=== PATIENT | male | born 1980 | race Caucasian/White ===

== ENCOUNTER 2018-01-07 22:23 | Inpatient (IN) | payer MEDICAID, OTHER ==
[~2018-01-07] VITALS: Ht 170.2 cm; Wt 111.6 kg
[~2018-01-07 22:23] MED LIST: ARIP10TA8 PO; AZIT250T9 PO; BUPR-93 PO; DIVA-76 PO; OLAN5TAB2 PO; PRED10 PO; PRED20 PO; PRED5 PO; TAMS0.4C32 PO; VERA80 PO
[2018-01-07 23:00] LABS: HEMATOCRIT 43.9 % (41-53); HEMOGLOBIN 14.9 g/dL (13.5-17.5); MEAN CORPUSCULAR HGB CONC 33.9 G/dL (31.0-37.0); MEAN CORPUSCULAR VOLUME 88 fL (80-100); PLATELET COUNT (AUTO) 446 K/uL (150-450); RED BLOOD CELL COUNT(AUTO) 4.97 MIL/uL (4.50-5.90); RED CELL DISTRIBUTION WIDTH 15.3 % (11.5-14.5)
[2018-01-07 23:09] LABS: ANION GAP 7 mmol/L (8-16); CALCIUM, TOTAL 9.1 mg/dL (8.8-10.5); CARBON DIOXIDE 31 mmol/L (22-29); CHLORIDE 104 mmol/L (98-107); CREATININE 0.92 mg/dL (0.60-1.30); GLOMERULAR FILTR. RATE CALC > 60 mL/min (>60); GLUCOSE,RANDOM 90 mg/dL (70-110); POTASSIUM 3.9 mmol/L (3.5-5.1); SODIUM SERUM 142 mmol/L (136-145); UREA NITROGEN, BLOOD 19 mg/dL (7-18)
[2018-01-07 23:15] LABS: ALANINE AMINOTRANSFERASE 17 U/L (12-78); ALBUMIN 2.8 g/dL (3.4-5.0); ALKALINE PHOSPHATASE 72 U/L (46-116); ASPARTATE AMINOTRANSFERASE 11 U/L (15-37); BILIRUBIN,TOTAL 0.2 mg/dL (0.1-1.0); TOTAL PROTEIN, SERUM 6.6 g/dL (6.4-8.2); VALPROIC ACID 34 mcg/mL (50-100)
[2018-01-07 23:21] LABS: AMPHET/METH SCREEN,URINE NEGATIVE (NEGATIVE); BARBITURATE SCREEN, URINE NEGATIVE (NEGATIVE); BENZODIAZEPINES SCREEN,URINE NEGATIVE (NEGATIVE); CANNABINOID SCREEN,URINE NEGATIVE (NEGATIVE); COCAINE SCREEN,URINE NEGATIVE (NEGATIVE); METHADONE SCREEN, URINE NEGATIVE (NEGATIVE); OPIATE SCREEN,URINE NEGATIVE (NEGATIVE); PHENCYCLIDINE SCREEN,URINE NEGATIVE (NEGATIVE)
[2018-01-07 23:22] LABS: BAND NEUTROPHILS % (MANUAL) 14 % (0-5); LYMPHOCYTES % (MANUAL) 42 % (22-44); MONOCYTES % (MANUAL) 5 % (2-9); SEGMENTED NEUTROPHILS % 39 % (40-70)
[2018-01-07] MEDS ORDERED: LORazepam 2 MG TABLET PO PRN (23:45)
[2018-01-07] MEDS ORDERED: OLANZapine 5 MG RAPDIS TABLET PO PRN (23:45)
[2018-01-07] MEDS ORDERED: QUEtiapine FUMARATE 100 MG TABLET PO PRN (23:45)
[2018-01-08] MEDS ORDERED: IBUPROFEN 600 MG TABLET PO ONE (00:45)
[2018-01-08] MEDS ORDERED: IPRATROPIUM BROMIDE 0.5 MG/2.5 ML NEB SOLUTION NEB ONE (09:00)
[2018-01-08] MEDS ORDERED: ALBUTEROL SULFATE 5 MG/ML 20 ML NEB SOLN [BULK] NEB ONE (09:00)
[2018-01-08 09:41] LABS: ABG A-A DIFF O2 112.3 mmHg (10-20.0); ABG BASE EXCESS 8.6 mmol/L (-2.0-3.0); ABG CARBOXYHEMOGLOBIN 2.6 % (0.0-1.5); ABG HCO3 30.4 mmol/L (22.0-26.0); ABG METHEMOGLOBIN 0.3 % (0.0-1.5); ABG OXYGEN CONTENT 16.8 mL/dL (15.0-23.0); ABG OXYGEN SATURATION 93.6 % (95.0-98.0); ABG OXYHEMOGLOBIN 90.9 % (94.0-100.0); ABG TOTAL HEMOGLOBIN 13.1 G/dL (12.0-18.0); PO2, ARTERIAL BG 70.5 mmHg (92.0-100.0); SOURCE, BLOOD GAS ARTERIAL; TEMPERATURE, FAHRENHEIT, BG 99.1 FAHREN (96.0-98.6)
[2018-01-08 09:42] LABS: ABG PCO2 63 mmHg (35-45)
[2018-01-08 09:43] LABS: O2 DEVICE,BLOOD GAS CANNULA (ROOM AIR); SITE, BLOOD GAS RT RADIAL
[2018-01-08 16:30] VITALS: BP 118/65
[2018-01-08] MEDS ORDERED: IPRATROPIUM BROMIDE 0.5 MG/2.5 ML NEB SOLUTION NEB SCH (19:00)
[2018-01-08] MEDS ORDERED: ALBUTEROL SULFATE 2.5 MG/0.5 ML NEB SOLUTION NEB SCH (19:00)
[2018-01-08] MEDS ORDERED: HALOPERIDOL 5 MG TABLET PO PRN (20:15)
[2018-01-08] MEDS ORDERED: OLANZapine 5 MG RAPDIS TABLET PO PRN (20:30)
[2018-01-08 20:44] LABS: GLUCOMETER DEV NAME(LOC) 3EI C; GLUCOSE,POINT OF CARE 121 MG/DL (70-110)
[2018-01-08] MEDS: ZOLPIDEM TARTRATE 10 MG TABLET PO PRN (20:44)
[2018-01-08] MEDS: HEPARIN SODIUM,PORCINE 5,000 UNITS/ML VIAL SQ SCH (20:44)
[2018-01-08] MEDS ORDERED: PredniSONE 20 MG TABLET PO SCH (21:00)
[2018-01-08] MEDS ORDERED: DIVALPROEX SODIUM 500 MG ER TABLET PO SCH (21:00)
[2018-01-08] MEDS ORDERED: OLANZapine 5 MG TABLET PO SCH (21:00)
[2018-01-08] MEDS ORDERED: DEXTROSE 50%-WATER 25 GM/50 ML SYRINGE IVP PRN (21:15)
[2018-01-08] MEDS: VERAPAMIL HCL 80 MG TABLET PO SCH (22:07)
[2018-01-09 02:16] VITALS: BP 117/64
[2018-01-09] MEDS: ACETAMINOPHEN 500 MG TABLET PO PRN (02:29)
[2018-01-09 05:34] LABS: GLUCOMETER DEV NAME(LOC) 3EI C; GLUCOSE,POINT OF CARE 240 MG/DL (70-110)
[2018-01-09] MEDS: ASPIRIN 81 MG CHEWABLE TABLET PO SCH (07:03)
[2018-01-09] MEDS: INSULIN LISPRO 100 UNITS/ML SQ PRN ×2 (07:19→20:33)
[2018-01-09] MEDS ORDERED: VERAPAMIL HCL 80 MG TABLET PO SCH (09:00)
[2018-01-09] MEDS ORDERED: BuPROPion HCL XL 150 MG ER TABLET PO SCH (09:00)
[2018-01-09] MEDS ORDERED: NICOTINE 21 MG/24 HOUR PATCH TD SCH (09:00)
[2018-01-09] MEDS ORDERED: PredniSONE 20 MG TABLET PO SCH (09:00)
[2018-01-09] MEDS: LEVOFLOXACIN 500 MG TABLET PO SCH (09:11)
[2018-01-09] MEDS: CIPROFLOXACIN HCL 0.2%/HYDROCORT 1% 10 ML OTIC SUSPENSION AU SCH ×3 (09:12→16:37)
[2018-01-09] MEDS: VERAPAMIL HCL 80 MG TABLET PO SCH ×4 (09:12→21:00)
[2018-01-09] MEDS: HEPARIN SODIUM,PORCINE 5,000 UNITS/ML VIAL SQ SCH ×2 (09:13→20:24)
[2018-01-09] MEDS: LORazepam 1 MG TABLET PO PRN (09:15)
[2018-01-09] MEDS: FLUTICASONE/VILANTEROL 200-25 MCG/INH INHALER [14] IH SCH (09:15)
[2018-01-09] MEDS: IPRATROPIUM BROMIDE 0.5 MG/2.5 ML NEB SOLUTION NEB SCH ×3 (09:29→16:00)
[2018-01-09] MEDS: ALBUTEROL SULFATE 2.5 MG/0.5 ML NEB SOLUTION NEB SCH ×3 (09:29→16:00)
[2018-01-09] MEDS: NICOTINE 21 MG/24 HOUR PATCH TD SCH (10:30)
[2018-01-09 11:29] LABS: GLUCOMETER DEV NAME(LOC) 3EI C; GLUCOSE,POINT OF CARE 118 MG/DL (70-110)
[2018-01-09 11:44] VITALS: BP 117/64
[2018-01-09 20:10] VITALS: BP 128/71
[2018-01-09] MEDS: DIVALPROEX SODIUM 500 MG ER TABLET PO SCH (20:23)
[2018-01-09] MEDS: ZOLPIDEM TARTRATE 10 MG TABLET PO PRN (20:27)
[2018-01-09] MEDS ORDERED: OLANZapine 10 MG TABLET PO SCH (21:00)
[2018-01-09] MEDS: IPRATROPIUM BROMIDE 0.5 MG/2.5 ML NEB SOLUTION NEB PRN (23:02)
[2018-01-09] MEDS: ALBUTEROL SULFATE 2.5 MG/0.5 ML NEB SOLUTION NEB PRN (23:02)
[2018-01-10] MEDS: LORazepam 1 MG TABLET PO PRN ×2 (02:03→16:34)
[2018-01-10 02:05] VITALS: BP 119/66
[2018-01-10 08:55] VITALS: BP 126/97
[2018-01-10] MEDS: NICOTINE 21 MG/24 HOUR PATCH TD SCH (09:00)
[2018-01-10] MEDS: IPRATROPIUM BROMIDE 0.5 MG/2.5 ML NEB SOLUTION NEB SCH ×3 (09:27→16:30)
[2018-01-10] MEDS: ALBUTEROL SULFATE 2.5 MG/0.5 ML NEB SOLUTION NEB SCH ×3 (09:27→16:30)
[2018-01-10] MEDS: VERAPAMIL HCL 80 MG TABLET PO SCH ×4 (09:52→21:19)
[2018-01-10] MEDS: CIPROFLOXACIN HCL 0.2%/HYDROCORT 1% 10 ML OTIC SUSPENSION AU SCH ×2 (09:52→17:39)
[2018-01-10] MEDS: FLUoxetine HCL 20 MG CAPSULE PO SCH (09:52)
[2018-01-10] MEDS: LEVOFLOXACIN 500 MG TABLET PO SCH (09:52)
[2018-01-10] MEDS: PredniSONE 10 MG TABLET PO SCH (09:53)
[2018-01-10] MEDS: FLUTICASONE/VILANTEROL 200-25 MCG/INH INHALER [14] IH SCH (09:53)
[2018-01-10] MEDS: HEPARIN SODIUM,PORCINE 5,000 UNITS/ML VIAL SQ SCH ×2 (09:53→21:22)
[2018-01-10] MEDS: ASPIRIN 81 MG CHEWABLE TABLET PO SCH (09:54)
[2018-01-10 11:26] LABS: GLUCOMETER DEV NAME(LOC) 3EI C; GLUCOSE,POINT OF CARE 210 MG/DL (70-110)
[2018-01-10 11:31] LABS: GLUCOMETER DEV NAME(LOC) 3EI C; GLUCOSE,POINT OF CARE 189 MG/DL (70-110)
[2018-01-10 11:32] LABS: GLUCOMETER DEV NAME(LOC) 3EI C; GLUCOSE,POINT OF CARE 113 MG/DL (70-110)
[2018-01-10] MEDS: INSULIN LISPRO 100 UNITS/ML SQ PRN ×2 (11:42→21:27)
[2018-01-10] MEDS ORDERED: DIVA500T52 PO (16:23)
[2018-01-10] MEDS ORDERED: FLUO-191 PO (16:23)
[2018-01-10 16:24] LABS: GLUCOMETER DEV NAME(LOC) 3EI C; GLUCOSE,POINT OF CARE 136 MG/DL (70-110)
[2018-01-10] MEDS ORDERED: OLAN10TA20 PO (16:25)
[2018-01-10 17:11] VITALS: BP 113/70
[2018-01-10] MEDS ORDERED: OLANZapine 7.5 MG TABLET PO SCH (21:00)
[2018-01-10] MEDS: DIVALPROEX SODIUM 500 MG ER TABLET PO SCH (21:19)
[2018-01-10] MEDS: ZOLPIDEM TARTRATE 10 MG TABLET PO PRN (21:20)
[2018-01-10 21:29] LABS: GLUCOMETER DEV NAME(LOC) 3EI C; GLUCOSE,POINT OF CARE 171 MG/DL (70-110)
[2018-01-10] MEDS: IPRATROPIUM BROMIDE 0.5 MG/2.5 ML NEB SOLUTION NEB PRN (22:47)
[2018-01-10] MEDS: ALBUTEROL SULFATE 2.5 MG/0.5 ML NEB SOLUTION NEB PRN (22:47)
[2018-01-11 05:40] LABS: GLUCOMETER DEV NAME(LOC) 3EI C; GLUCOSE,POINT OF CARE 86 MG/DL (70-110)
[2018-01-11] MEDS: ASPIRIN 81 MG CHEWABLE TABLET PO SCH (06:38)
[2018-01-11] MEDS: LEVOFLOXACIN 500 MG TABLET PO SCH (08:02)
[2018-01-11] MEDS: FLUoxetine HCL 20 MG CAPSULE PO SCH (08:02)
[2018-01-11] MEDS: VERAPAMIL HCL 80 MG TABLET PO SCH ×2 (08:02→13:07)
[2018-01-11] MEDS: PredniSONE 10 MG TABLET PO SCH (08:03)
[2018-01-11] MEDS: HEPARIN SODIUM,PORCINE 5,000 UNITS/ML VIAL SQ SCH (08:03)
[2018-01-11] MEDS: FLUTICASONE/VILANTEROL 200-25 MCG/INH INHALER [14] IH SCH (08:03)
[2018-01-11] MEDS: CIPROFLOXACIN HCL 0.2%/HYDROCORT 1% 10 ML OTIC SUSPENSION AU SCH ×2 (08:04→13:07)
[2018-01-11 08:43] VITALS: BP 123/74
[2018-01-11] MEDS: ACETAMINOPHEN 500 MG TABLET PO PRN (08:43)
[2018-01-11] MEDS: IPRATROPIUM BROMIDE 0.5 MG/2.5 ML NEB SOLUTION NEB SCH ×2 (08:54→14:33)
[2018-01-11] MEDS: ALBUTEROL SULFATE 2.5 MG/0.5 ML NEB SOLUTION NEB SCH ×2 (08:55→14:33)
[2018-01-11] MEDS: NICOTINE 21 MG/24 HOUR PATCH TD SCH (09:00)
[2018-01-11 11:25] LABS: GLUCOMETER DEV NAME(LOC) 3EI C; GLUCOSE,POINT OF CARE 102 MG/DL (70-110)
[2018-01-11] MEDS ORDERED: ASPI81 PO (11:52)
[2018-01-11] MEDS ORDERED: LEVO500T2 PO (11:52)
[2018-01-11] MEDS ORDERED: FLUT1BLS IH (11:52)
[2018-01-11] MEDS ORDERED: FLUO-191 PO (11:52)
[2018-01-11] MEDS ORDERED: AUD NEB (11:52)
[2018-01-11] MEDS ORDERED: CIPOTIC AU (11:53)
[2018-01-11] MEDS ORDERED: IPRNEB IH (12:06)
[2018-01-11 12:33] VITALS: BP 126/78
[2018-01-12] MEDS ORDERED: PredniSONE 20 MG TABLET PO SCH (09:00)
[2018-01-15] MEDS ORDERED: PredniSONE 20 MG TABLET PO SCH (09:00)
[2018-01-17] MEDS ORDERED: PredniSONE 10 MG TABLET PO SCH (09:00)
[2018-01-27] MEDS ORDERED: PredniSONE 5 MG TABLET PO SCH (09:00)
== END 2018-01-11 14:45 | disposition home or self-care (01) | DRG 750 ==
LOC: EMS 22:24 → 3EI 01-08 15:48
PROVIDERS: ADMIT Psychiatry & Neurology Psychiatry; ATTEND Psychiatry & Neurology Psychiatry
PROC: 5A09357 Assistance with Respiratory Ventilation, Less than 24 Consecutive Hours, Continuous Positive Airway Pressure (ICD-10-PCS; 2018-01-08)
PROC: 3E02340 Introduction of Influenza Vaccine into Muscle, Percutaneous Approach (ICD-10-PCS; principal; 2018-01-09)
PROC: 5A09357 Assistance with Respiratory Ventilation, Less than 24 Consecutive Hours, Continuous Positive Airway Pressure (ICD-10-PCS; 2018-01-10)
DX: F25.0 Schizoaffective disorder, bipolar type (principal); J18.9 Pneumonia, unspecified organism; R45.851 Suicidal ideations; J44.0 Chronic obstructive pulmonary disease with (acute) lower respiratory infection; E66.01 Morbid (severe) obesity due to excess calories; N40.0 Benign prostatic hyperplasia without lower urinary tract symptoms; I10 Essential (primary) hypertension; J44.1 Chronic obstructive pulmonary disease with (acute) exacerbation; G47.33 Obstructive sleep apnea (adult) (pediatric); R00.0 Tachycardia, unspecified; F17.210 Nicotine dependence, cigarettes, uncomplicated; Z91.19 Patient's noncompliance with other medical treatment and regimen; Z87.01 Personal history of pneumonia (recurrent); Z90.81 Acquired absence of spleen; Z79.899 Other long term (current) drug therapy; Z88.8 Allergy status to other drugs, medicaments and biological substances; Z91.013 Allergy to seafood; Z56.0 Unemployment, unspecified; Z23 Encounter for immunization; Z68.38 Body mass index [BMI] 38.0-38.9, adult
CPT/HCPCS: 82805; 87081; 90471; 93970; 94640; 94644; 94660; 99285; G0480; J1644

== ENCOUNTER 2019-03-23 17:07 | Emergency (ER) | payer MEDICAID, OTHER ==
[~2019-03-23] VITALS: Ht 172.7 cm; Wt 90.9 kg
[~2019-03-23 17:07] MED LIST changes: -ARIP10TA8 PO; +ASPI81 PO; +AUD NEB; -AZIT250T9 PO; -BUPR-93 PO; +CIPOTIC AU; +DIVA500T52 PO; +FLUO-191 PO; +FLUT1BLS IH; +IPRNEB IH; +LEVO500T2 PO; +OLAN10TA20 PO; -PRED20 PO; -PRED5 PO; -TAMS0.4C32 PO
[2019-03-23] MEDS ORDERED: ACETAMINOPHEN 500 MG TABLET PO ONE (17:30)
[2019-03-23] MEDS ORDERED: FENO160T11 PO (18:00)
[2019-03-23] MEDS ORDERED: BENZ1TAB10 PO (18:00)
[2019-03-23] MEDS ORDERED: ATOR20TA86 PO (18:00)
[2019-03-23 18:56] VITALS: BP 127/79
== END 2019-03-23 19:53 | disposition home or self-care (01) ==
LOC: EMS 17:08
DX: M25.532 Pain in left wrist (principal); F31.9 Bipolar disorder, unspecified; F20.9 Schizophrenia, unspecified; F17.210 Nicotine dependence, cigarettes, uncomplicated; Z79.899 Other long term (current) drug therapy; Z88.8 Allergy status to other drugs, medicaments and biological substances; Z91.013 Allergy to seafood
CPT/HCPCS: 99406

== ENCOUNTER 2019-04-12 17:02 | Emergency (ER) | payer OTHER ==
[~2019-04-12] VITALS: Ht 170.2 cm; Wt 94.4 kg
[~2019-04-12 17:02] MED LIST changes: +ATOR20TA86 PO; +BENZ1TAB10 PO; +FENO160T11 PO
[2019-04-12 19:35] VITALS: BP 140/80
== END 2019-04-12 19:35 | disposition home or self-care (01) ==
LOC: EMS 17:14
DX: R19.4 Change in bowel habit (principal); F31.9 Bipolar disorder, unspecified; F20.9 Schizophrenia, unspecified; F17.210 Nicotine dependence, cigarettes, uncomplicated; F90.9 Attention-deficit hyperactivity disorder, unspecified type; Z98.890 Other specified postprocedural states; Z79.82 Long term (current) use of aspirin; Z79.899 Other long term (current) drug therapy; Z88.8 Allergy status to other drugs, medicaments and biological substances; Z91.013 Allergy to seafood
CPT/HCPCS: 82271

== ENCOUNTER 2019-04-14 21:02 | Emergency (ER) | payer OTHER ==
[~2019-04-14] VITALS: Ht 170.2 cm; Wt 97.0 kg
[~2019-04-14 21:02] MED LIST changes: -CIPOTIC AU; -LEVO500T2 PO
[2019-04-14 21:13] VITALS: BP 127/93
[2019-04-14] MEDS ORDERED: IBUPROFEN 800 MG TABLET PO ONE (22:00)
== END 2019-04-14 23:23 | disposition home or self-care (01) ==
LOC: EMS 21:04
DX: M54.5 Low back pain (principal); F31.9 Bipolar disorder, unspecified; F20.9 Schizophrenia, unspecified; F17.210 Nicotine dependence, cigarettes, uncomplicated; F43.10 Post-traumatic stress disorder, unspecified; Z79.82 Long term (current) use of aspirin; Z91.013 Allergy to seafood; Z98.890 Other specified postprocedural states; Z88.8 Allergy status to other drugs, medicaments and biological substances

== ENCOUNTER 2019-05-01 16:59 | Emergency (ER) | payer OTHER ==
[~2019-05-01] VITALS: Ht 170.2 cm; Wt 81.8 kg
[2019-05-01] MEDS ORDERED: PB/HYOSCY/ATR/SCOP/LIDO/MAALOX 55 ML BOTTLE PO ONE (20:45)
[2019-05-01 20:50] LABS: BASOPHILS % (AUTO) 0.8 % (0.0-2.0); EOSINOPHILS % (AUTO) 1.2 % (1.0-6.0); HEMATOCRIT 40.4 % (41-53); HEMOGLOBIN 13.8 g/dL (13.5-17.5); LYMPHOCYTES # (AUTO) 2.9 K/uL (1.0-4.8); LYMPHOCYTES % (AUTO) 30.2 % (22.0-44.0); MEAN CORPUSCULAR HEMOGLOBIN 29.9 pg (26.0-34.0); MEAN CORPUSCULAR HGB CONC 34.1 G/dL (31.0-37.0); MEAN CORPUSCULAR VOLUME 88 fL (80-100); MONOCYTES % (AUTO) 20.6 % (2.0-9.0); NEUTROPHILS # (AUTO) 4.6 K/uL (1.8-7.7); NEUTROPHILS % (AUTO) 47.2 % (40.0-70.0); PLATELET COUNT (AUTO) 348 K/uL (150-450); RED CELL DISTRIBUTION WIDTH 18.2 % (11.5-14.5)
[2019-05-01 21:06] LABS: ANION GAP 5 mmol/L (8-16); CALCIUM, TOTAL 9.2 mg/dL (8.8-10.5); CARBON DIOXIDE 33 mmol/L (22-29); CHLORIDE 100 mmol/L (98-107); CREATININE 0.97 mg/dL (0.60-1.30); GLOMERULAR FILTR. RATE CALC > 60 mL/min (>60); GLUCOSE,RANDOM 89 mg/dL (70-110); POTASSIUM 4.2 mmol/L (3.5-5.1); SODIUM SERUM 138 mmol/L (136-145); UREA NITROGEN, BLOOD 8 mg/dL (7-18)
[2019-05-01 21:12] LABS: ALANINE AMINOTRANSFERASE 38 U/L (12-78); ALBUMIN 2.7 g/dL (3.4-5.0); ALKALINE PHOSPHATASE 54 U/L (46-116); ASPARTATE AMINOTRANSFERASE 130 U/L (15-37); BILIRUBIN,TOTAL 0.3 mg/dL (0.1-1.0); CREATINE KINASE, TOTAL ONLY 53 U/L (39-308); TOTAL PROTEIN, SERUM 7.3 g/dL (6.4-8.2)
[2019-05-01 21:41] VITALS: BP 148/67
== END 2019-05-01 23:41 | disposition home or self-care (01) ==
LOC: EMS 17:01
DX: K21.9 Gastro-esophageal reflux disease without esophagitis (principal); F31.9 Bipolar disorder, unspecified; F20.9 Schizophrenia, unspecified; F17.210 Nicotine dependence, cigarettes, uncomplicated; Z98.890 Other specified postprocedural states; Z79.82 Long term (current) use of aspirin; Z88.8 Allergy status to other drugs, medicaments and biological substances; Z91.013 Allergy to seafood
CPT/HCPCS: 93005

== ENCOUNTER 2019-05-30 19:04 | Emergency (ER) | payer OTHER ==
[~2019-05-30] VITALS: Ht 170.2 cm; Wt 113.6 kg
[~2019-05-30 19:04] MED LIST changes: +ASPI-728 PO; -ASPI81 PO; -DIVA-76 PO; -OLAN10TA20 PO
[2019-05-30 21:25] LABS: BASOPHILS % (AUTO) 1.6 % (0.0-2.0); EOSINOPHILS % (AUTO) 0.4 % (1.0-6.0); HEMATOCRIT 39.8 % (41-53); HEMOGLOBIN 13.5 g/dL (13.5-17.5); LYMPHOCYTES # (AUTO) 3.9 K/uL (1.0-4.8); LYMPHOCYTES % (AUTO) 26.7 % (22.0-44.0); MEAN CORPUSCULAR HEMOGLOBIN 30.4 pg (26.0-34.0); MEAN CORPUSCULAR HGB CONC 33.8 G/dL (31.0-37.0); MEAN CORPUSCULAR VOLUME 90 fL (80-100); MONOCYTES # (AUTO) 2.7 K/uL (0.1-1.0); MONOCYTES % (AUTO) 18.2 % (2.0-9.0); NEUTROPHILS # (AUTO) 7.8 K/uL (1.8-7.7); NEUTROPHILS % (AUTO) 53.1 % (40.0-70.0); PLATELET COUNT (AUTO) 376 K/uL (150-450); RED BLOOD CELL COUNT(AUTO) 4.43 MIL/uL (4.50-5.90); RED CELL DISTRIBUTION WIDTH 16.8 % (11.5-14.5)
[2019-05-30 21:33] LABS: ANION GAP 7 mmol/L (8-16); CARBON DIOXIDE 31 mmol/L (22-29); CHLORIDE 95 mmol/L (98-107); CREATININE 1.18 mg/dL (0.60-1.30); GLOMERULAR FILTR. RATE CALC > 60 mL/min (>60); GLUCOSE,RANDOM 90 mg/dL (70-110); POTASSIUM 3.7 mmol/L (3.5-5.1); SODIUM SERUM 133 mmol/L (136-145); UREA NITROGEN, BLOOD 29 mg/dL (7-18)
[2019-05-30 21:38] LABS: ALANINE AMINOTRANSFERASE 34 U/L (12-78); ALBUMIN 3.2 g/dL (3.4-5.0); ALKALINE PHOSPHATASE 52 U/L (46-116); ASPARTATE AMINOTRANSFERASE 105 U/L (15-37); BILIRUBIN,TOTAL 0.7 mg/dL (0.1-1.0); TOTAL PROTEIN, SERUM 7.9 g/dL (6.4-8.2); VALPROIC ACID 93 mcg/mL (50-100)
[2019-05-30] MEDS ORDERED: LORazepam 1 MG TABLET PO ONE (23:15)
[2019-05-30 23:27] VITALS: BP 129/79
== END 2019-05-31 01:20 | disposition home or self-care (01) ==
LOC: EMS 19:04
DX: F15.129 Other stimulant abuse with intoxication, unspecified (principal); R74.0 Nonspecific elevation of levels of transaminase and lactic acid dehydrogenase [LDH]; F31.9 Bipolar disorder, unspecified; F20.9 Schizophrenia, unspecified; F90.9 Attention-deficit hyperactivity disorder, unspecified type; F17.210 Nicotine dependence, cigarettes, uncomplicated; Z98.890 Other specified postprocedural states; Z79.899 Other long term (current) drug therapy; Z79.82 Long term (current) use of aspirin; Z88.8 Allergy status to other drugs, medicaments and biological substances; Z91.013 Allergy to seafood
CPT/HCPCS: 36415; 80053; 80164; 85025; 99283; G0480

== ENCOUNTER 2019-06-10 06:46 | Emergency (ER) | payer OTHER ==
[~2019-06-10] VITALS: Ht 167.6 cm; Wt 88.0 kg
[2019-06-10 07:32] VITALS: BP 135/75
[2019-06-10] MEDS ORDERED: BENZONATATE 100 MG CAPSULE PO ONE (08:00)
[2019-06-10] MEDS ORDERED: ALBUTEROL SULFATE HFA 90 MCG/PUFF 8 GM INHALER IH ONE (08:30)
== END 2019-06-10 08:40 | disposition home or self-care (01) ==
LOC: EMS 06:49
DX: R05 Cough (principal); F31.9 Bipolar disorder, unspecified; F20.9 Schizophrenia, unspecified; F17.210 Nicotine dependence, cigarettes, uncomplicated; Z91.013 Allergy to seafood; Z88.8 Allergy status to other drugs, medicaments and biological substances
CPT/HCPCS: 94640; 99406; J3535

== ENCOUNTER 2019-06-12 19:37 | Emergency (ER) | payer OTHER ==
[~2019-06-12] VITALS: Ht 170.2 cm; Wt 92.3 kg
[~2019-06-12 19:37] MED LIST changes: -ASPI-728 PO; -ATOR20TA86 PO; -FLUO-191 PO; -OLAN5TAB2 PO
[2019-06-12] MEDS ORDERED: SODIUM CHLORIDE 0.9% 1,000 ML IV ONE (20:44)
[2019-06-12] MEDS ORDERED: ONDANSETRON HCL 4 MG/2 ML VIAL IVP ONE (20:45)
[2019-06-12] MEDS ORDERED: ONDANSETRON HCL 4 MG TABLET PO ONE (21:00)
[2019-06-12 21:15] LABS: EOSINOPHILS % (AUTO) 1.8 % (1.0-6.0); HEMATOCRIT 42.9 % (41-53); HEMOGLOBIN 14.2 g/dL (13.5-17.5); LYMPHOCYTES # (AUTO) 3.8 K/uL (1.0-4.8); MEAN CORPUSCULAR VOLUME 91 fL (80-100); MONOCYTES # (AUTO) 1.6 K/uL (0.1-1.0); MONOCYTES % (AUTO) 15.5 % (2.0-9.0); NEUTROPHILS # (AUTO) 4.4 K/uL (1.8-7.7); NEUTROPHILS % (AUTO) 43.7 % (40.0-70.0); PLATELET COUNT (AUTO) 371 K/uL (150-450); RED BLOOD CELL COUNT(AUTO) 4.72 MIL/uL (4.50-5.90); RED CELL DISTRIBUTION WIDTH 16.6 % (11.5-14.5)
[2019-06-12 21:24] LABS: ANION GAP 4 mmol/L (8-16); CALCIUM, TOTAL 9.2 mg/dL (8.8-10.5); CARBON DIOXIDE 33 mmol/L (22-29); CHLORIDE 103 mmol/L (98-107); CREATININE 1.04 mg/dL (0.60-1.30); GLOMERULAR FILTR. RATE CALC > 60 mL/min (>60); GLUCOSE,RANDOM 95 mg/dL (70-110); POTASSIUM 4.4 mmol/L (3.5-5.1); SODIUM SERUM 140 mmol/L (136-145); UREA NITROGEN, BLOOD 10 mg/dL (7-18)
[2019-06-12 21:31] LABS: ALANINE AMINOTRANSFERASE 23 U/L (12-78); ALBUMIN 2.8 g/dL (3.4-5.0); ALKALINE PHOSPHATASE 50 U/L (46-116); ASPARTATE AMINOTRANSFERASE 34 U/L (15-37); BILIRUBIN,TOTAL 0.3 mg/dL (0.1-1.0); LIPASE 86 U/L (73-393); TOTAL PROTEIN, SERUM 7.2 g/dL (6.4-8.2)
[2019-06-12 21:37] LABS: APPEARANCE,URINE CLEAR (CLEAR); BILIRUBIN,URINE NEGATIVE (NEGATIVE); GLUCOSE, URINE (UA) NEGATIVE (NEGATIVE); KETONES,URINE NEGATIVE (NEGATIVE); LEUKOCYTE ESTERASE ,URINE NEGATIVE (NEGATIVE); NITRATE,URINE NEGATIVE (NEGATIVE); OCCULT BLOOD,URINE NEGATIVE (NEGATIVE); PH,URINE 6.5 (5.0-8.0); PROTEIN,URINE NEGATIVE (NEGATIVE)
[2019-06-12 21:39] LABS: AMPHET/METH SCREEN,URINE NEGATIVE (NEGATIVE); BARBITURATE SCREEN, URINE NEGATIVE (NEGATIVE); BENZODIAZEPINES SCREEN,URINE NEGATIVE (NEGATIVE); CANNABINOID SCREEN,URINE NEGATIVE (NEGATIVE); COCAINE SCREEN,URINE NEGATIVE (NEGATIVE); METHADONE SCREEN, URINE NEGATIVE (NEGATIVE); OPIATE SCREEN,URINE NEGATIVE (NEGATIVE)
[2019-06-12 21:42] LABS: PHENCYCLIDINE SCREEN,URINE NEGATIVE (NEGATIVE)
[2019-06-12 21:57] LABS: PLATELET MORPHOLOGY COMMENT GIANT PLTS PRESENT
[2019-06-13 00:12] VITALS: BP 125/76
== END 2019-06-13 00:10 | disposition home or self-care (01) ==
LOC: EMS 19:40
DX: G89.29 Other chronic pain (principal); R10.9 Unspecified abdominal pain; M54.9 Dorsalgia, unspecified; F17.210 Nicotine dependence, cigarettes, uncomplicated
CPT/HCPCS: 36415; 80053; 80307; 81003; 83690; 85025; 99285; Q0162

== ENCOUNTER 2019-06-18 18:22 | Emergency (ER) | payer OTHER ==
[~2019-06-18] VITALS: Ht 172.7 cm; Wt 90.9 kg
[2019-06-18 19:29] VITALS: BP 123/72
[2019-06-18] MEDS ORDERED: ALBUTEROL SULFATE HFA 90 MCG/PUFF 8 GM INHALER IH ONE (20:00)
== END 2019-06-18 21:30 | disposition home or self-care (01) ==
LOC: EMS 18:26
DX: J45.909 Unspecified asthma, uncomplicated (principal); F17.210 Nicotine dependence, cigarettes, uncomplicated; F31.9 Bipolar disorder, unspecified; F20.9 Schizophrenia, unspecified; Z88.8 Allergy status to other drugs, medicaments and biological substances; Z91.013 Allergy to seafood
CPT/HCPCS: 94640; J3535

== ENCOUNTER 2019-06-20 23:00 | Emergency (ER) | payer OTHER ==
[~2019-06-20] VITALS: Ht 170.2 cm; Wt 95.5 kg
[2019-06-21 02:16] VITALS: BP 134/80
== END 2019-06-21 03:02 | disposition home or self-care (01) ==
LOC: EMS 23:01
DX: M79.672 Pain in left foot (principal); F31.9 Bipolar disorder, unspecified; F20.9 Schizophrenia, unspecified; F17.210 Nicotine dependence, cigarettes, uncomplicated; F19.90 Other psychoactive substance use, unspecified, uncomplicated; Z88.8 Allergy status to other drugs, medicaments and biological substances; Z91.013 Allergy to seafood

== ENCOUNTER 2019-06-29 21:05 | Emergency (ER) | payer OTHER ==
[~2019-06-29] VITALS: Ht 170.2 cm; Wt 104.5 kg
[~2019-06-29 21:05] MED LIST changes: -PRED10 PO
[2019-06-29] MEDS ORDERED: CEPHALEXIN MONOHYDRATE 500 MG CAPSULE PO ONE (23:30)
[2019-06-29] MEDS ORDERED: DOXYCYCLINE HYCLATE 100 MG CAPSULE PO ONE (23:30)
[2019-06-29 23:35] VITALS: BP 124/73
== END 2019-06-30 01:37 | disposition home or self-care (01) ==
LOC: EMS 21:07
DX: L03.116 Cellulitis of left lower limb (principal); F31.9 Bipolar disorder, unspecified; F20.9 Schizophrenia, unspecified; F15.90 Other stimulant use, unspecified, uncomplicated; F17.210 Nicotine dependence, cigarettes, uncomplicated; Z88.8 Allergy status to other drugs, medicaments and biological substances; Z91.018 Allergy to other foods; Z79.899 Other long term (current) drug therapy
CPT/HCPCS: 99406

== ENCOUNTER 2019-07-01 14:37 | Emergency (ER) | payer OTHER ==
[~2019-07-01] VITALS: Ht 170.2 cm; Wt 72.7 kg
[2019-07-01] MEDS ORDERED: HYDROCORTISONE 1% 30 GM CREAM TP ONE (15:45)
[2019-07-01 17:00] VITALS: BP 118/76
== END 2019-07-01 19:23 | disposition home or self-care (01) ==
LOC: EMS 14:37
DX: L03.116 Cellulitis of left lower limb (principal); F31.9 Bipolar disorder, unspecified; F20.9 Schizophrenia, unspecified; F17.210 Nicotine dependence, cigarettes, uncomplicated; F15.90 Other stimulant use, unspecified, uncomplicated; Z88.8 Allergy status to other drugs, medicaments and biological substances; Z79.899 Other long term (current) drug therapy; Z88.5 Allergy status to narcotic agent; Z91.013 Allergy to seafood; Z98.890 Other specified postprocedural states
CPT/HCPCS: 99406

== ENCOUNTER 2019-08-06 16:58 | Emergency (ER) | payer OTHER ==
[~2019-08-06] VITALS: Ht 170.2 cm; Wt 90.5 kg
[2019-08-06] MEDS ORDERED: KETOROLAC TROMETHAMINE 30 MG/ML VIAL IM ONE (18:15)
[2019-08-06 19:15] VITALS: BP 121/76
== END 2019-08-06 21:28 | disposition home or self-care (01) ==
LOC: EMS 17:01
DX: M25.512 Pain in left shoulder (principal); F17.210 Nicotine dependence, cigarettes, uncomplicated; J45.909 Unspecified asthma, uncomplicated; F31.9 Bipolar disorder, unspecified; F20.9 Schizophrenia, unspecified; F14.90 Cocaine use, unspecified, uncomplicated; F19.90 Other psychoactive substance use, unspecified, uncomplicated; Z88.8 Allergy status to other drugs, medicaments and biological substances; Z91.013 Allergy to seafood
CPT/HCPCS: 73030; 96372; 99283; 99406; J1885

== ENCOUNTER 2019-09-04 22:34 | Emergency (ER) | payer OTHER ==
[~2019-09-04] VITALS: Ht 165.1 cm; Wt 81.8 kg
[~2019-09-04 22:34] MED LIST changes: +DIVA-80 PO; -DIVA500T52 PO
[2019-09-04] MEDS ORDERED: ACETAMINOPHEN 500 MG TABLET PO ONE (23:30)
[2019-09-04 23:54] VITALS: BP 114/71
== END 2019-09-05 00:07 | disposition home or self-care (01) ==
LOC: EMS 22:34
DX: M79.602 Pain in left arm (principal); F31.9 Bipolar disorder, unspecified; F20.9 Schizophrenia, unspecified; J44.9 Chronic obstructive pulmonary disease, unspecified; F17.210 Nicotine dependence, cigarettes, uncomplicated; F15.90 Other stimulant use, unspecified, uncomplicated; F14.90 Cocaine use, unspecified, uncomplicated

== ENCOUNTER 2019-09-28 19:53 | Emergency (ER) | payer OTHER ==
[~2019-09-28] VITALS: Ht 167.6 cm; Wt 90.9 kg
[~2019-09-28 19:53] MED LIST changes: -DIVA-80 PO; +DIVA500T52 PO
[2019-09-28 22:52] VITALS: BP 130/62
== END 2019-09-28 23:44 | disposition home or self-care (01) ==
LOC: EMS 19:55
DX: R21 Rash and other nonspecific skin eruption (principal); J45.909 Unspecified asthma, uncomplicated; F31.9 Bipolar disorder, unspecified; F20.9 Schizophrenia, unspecified; F17.210 Nicotine dependence, cigarettes, uncomplicated; F14.90 Cocaine use, unspecified, uncomplicated; F19.90 Other psychoactive substance use, unspecified, uncomplicated; Z88.8 Allergy status to other drugs, medicaments and biological substances; Z91.013 Allergy to seafood

== ENCOUNTER 2019-12-10 14:42 | Emergency (ER) | payer OTHER ==
[~2019-12-10] VITALS: Ht 170.2 cm; Wt 77.3 kg
[~2019-12-10 14:42] MED LIST changes: +DIVA-80 PO; -DIVA500T52 PO
[2019-12-10] MEDS ORDERED: OLAN10TA3 PO (14:59)
[2019-12-10] MEDS ORDERED: ATOR20TA86 PO (14:59)
[2019-12-10] MEDS ORDERED: FLUO-191 PO (14:59)
[2019-12-10] MEDS ORDERED: MULT-1192 PO (14:59)
[2019-12-10 16:33] VITALS: BP 110/71
== END 2019-12-10 18:10 | disposition home or self-care (01) ==
LOC: EMS 14:48
DX: F25.9 Schizoaffective disorder, unspecified (principal); M54.6 Pain in thoracic spine; J45.909 Unspecified asthma, uncomplicated; F31.9 Bipolar disorder, unspecified; F17.210 Nicotine dependence, cigarettes, uncomplicated; F14.90 Cocaine use, unspecified, uncomplicated; F19.90 Other psychoactive substance use, unspecified, uncomplicated; Z88.8 Allergy status to other drugs, medicaments and biological substances; Z91.013 Allergy to seafood
CPT/HCPCS: 99283; Z7502

== ENCOUNTER 2019-12-23 19:30 | Emergency (ER) | payer OTHER ==
[~2019-12-23] VITALS: Ht 172.7 cm; Wt 90.9 kg
[~2019-12-23 19:30] MED LIST changes: +ATOR20TA86 PO; +FLUO-191 PO; +MULT-1192 PO; +OLAN10TA3 PO
[2019-12-23 22:00] VITALS: BP 108/67
== END 2019-12-23 23:03 | disposition home or self-care (01) ==
LOC: EMS 19:31
DX: S93.402A Sprain of unspecified ligament of left ankle, initial encounter (principal); J45.909 Unspecified asthma, uncomplicated; F31.9 Bipolar disorder, unspecified; F20.9 Schizophrenia, unspecified; F17.210 Nicotine dependence, cigarettes, uncomplicated; F14.90 Cocaine use, unspecified, uncomplicated; F19.90 Other psychoactive substance use, unspecified, uncomplicated; Z91.013 Allergy to seafood; Z88.8 Allergy status to other drugs, medicaments and biological substances; X50.1XXA Overexertion from prolonged static or awkward postures, initial encounter; Y93.01 Activity, walking, marching and hiking; Y92.89 Other specified places as the place of occurrence of the external cause; Y99.8 Other external cause status

== ENCOUNTER 2020-01-20 17:04 | Inpatient (IN) | payer MEDICAID, OTHER ==
[~2020-01-20] VITALS: Ht 170.2 cm; Wt 77.7 kg
[2020-01-20] MEDS ORDERED: LORazepam 2 MG TABLET PO PRN (17:30)
[2020-01-20] MEDS ORDERED: OLANZapine 5 MG RAPDIS TABLET PO PRN (17:30)
[2020-01-20] MEDS ORDERED: ZOLPIDEM TARTRATE 10 MG TABLET PO PRN (17:30)
[2020-01-20 17:45] LABS: BASOPHILS % (AUTO) 1.6 % (0.0-2.0); EOSINOPHILS % (AUTO) 6.7 % (1.0-6.0); HEMATOCRIT 36.4 % (41-53); HEMOGLOBIN 12.2 g/dL (13.5-17.5); LYMPHOCYTES # (AUTO) 3.9 K/uL (1.0-4.8); LYMPHOCYTES % (AUTO) 41.4 % (22.0-44.0); MEAN CORPUSCULAR HEMOGLOBIN 31.4 pg (26.0-34.0); MEAN CORPUSCULAR HGB CONC 33.5 G/dL (31.0-37.0); MEAN CORPUSCULAR VOLUME 94 fL (80-100); MONOCYTES # (AUTO) 1.3 K/uL (0.1-1.0); NEUTROPHILS # (AUTO) 3.4 K/uL (1.8-7.7); NEUTROPHILS % (AUTO) 36.3 % (40.0-70.0); PLATELET COUNT (AUTO) 530 K/uL (150-450); RED BLOOD CELL COUNT(AUTO) 3.89 MIL/uL (4.50-5.90); RED CELL DISTRIBUTION WIDTH 15.5 % (11.5-14.5)
[2020-01-20 18:08] LABS: ANION GAP 4 mmol/L (8-16); CALCIUM, TOTAL 9.5 mg/dL (8.8-10.5); CARBON DIOXIDE 32 mmol/L (22-29); CHLORIDE 103 mmol/L (98-107); CREATININE 1.01 mg/dL (0.60-1.30); GLOMERULAR FILTR. RATE CALC > 60 mL/min (>60); GLUCOSE,RANDOM 102 mg/dL (70-110); POTASSIUM 4.1 mmol/L (3.5-5.1); SODIUM SERUM 139 mmol/L (136-145); UREA NITROGEN, BLOOD 18 mg/dL (7-18)
[2020-01-20 18:08] LABS: COVID AG,FIA SOURCE NASOPHARYNGEAL
[2020-01-20 18:14] LABS: ALANINE AMINOTRANSFERASE 32 U/L (12-78); ALBUMIN 2.9 g/dL (3.4-5.0); ALKALINE PHOSPHATASE 52 U/L (46-116); ASPARTATE AMINOTRANSFERASE 48 U/L (15-37); BILIRUBIN,TOTAL 0.4 mg/dL (0.1-1.0); TOTAL PROTEIN, SERUM 6.2 g/dL (6.4-8.2)
[2020-01-20 18:16] LABS: VALPROIC ACID < 3 mcg/mL (50-100)
[2020-01-20 23:03] LABS: AMPHET/METH SCREEN,URINE POSITIVE (NEGATIVE); BARBITURATE SCREEN, URINE NEGATIVE (NEGATIVE); BENZODIAZEPINES SCREEN,URINE NEGATIVE (NEGATIVE); CANNABINOID SCREEN,URINE NEGATIVE (NEGATIVE); COCAINE SCREEN,URINE NEGATIVE (NEGATIVE); METHADONE SCREEN, URINE NEGATIVE (NEGATIVE); OPIATE SCREEN,URINE NEGATIVE (NEGATIVE); PHENCYCLIDINE SCREEN,URINE NEGATIVE (NEGATIVE)
[2020-01-21 04:43] LABS: CHOL/HDL RATIO 7.3 (4.2-7.3); CHOLESTEROL 145 mg/dL (131-200); FREE T4 (FREE THYROXINE) 1.37 ng/dL (0.76-1.46); HDL CHOLESTEROL 20 mg/dL (40-60); LDL CHOL (CALC.) 74 mg/dL (0-130); THYROID STIMULATING HORMONE 0.97 uIU/mL (0.36-3.74); TRIGLYCERIDES 253 mg/dL (15-150)
[2020-01-21 13:28] VITALS: BP 110/65
[2020-01-21] MEDS: RisperiDONE 3 MG TABLET PO SCH (16:33)
[2020-01-21 16:54] VITALS: BP 108/70
[2020-01-21] MEDS ORDERED: ALBUTEROL SULFATE 2.5 MG/0.5 ML NEB SOLUTION NEB PRN (17:30)
[2020-01-21] MEDS: DIVALPROEX SODIUM 500 MG ER TABLET PO SCH (21:00)
[2020-01-21] MEDS: OLANZapine 10 MG TABLET PO SCH (21:00)
[2020-01-21] MEDS: VERAPAMIL HCL 80 MG TABLET PO SCH (21:00)
[2020-01-21] MEDS ORDERED: LOPERAMIDE HCL 2 MG CAPSULE PO PRN (21:15)
[2020-01-21] MEDS ORDERED: CloNIDine HCL 0.1 MG TABLET PO PRN (21:15)
[2020-01-21] MEDS ORDERED: BENZOCAINE/MENTHOL LOZENGE PO PRN (21:15)
[2020-01-21] MEDS ORDERED: MAG HYDROX/AL HYDROX/SIMETH ES 30 ML SUSPENSION UDCUP PO PRN (21:15)
[2020-01-21] MEDS ORDERED: BACITRACIN 28 GM OINTMENT TP PRN (21:15)
[2020-01-21] MEDS ORDERED: ALBUTEROL SULFATE HFA 90 MCG/PUFF 8 GM INHALER IH PRN (21:15)
[2020-01-21] MEDS ORDERED: ONDANSETRON HCL 4 MG TABLET PO PRN (21:15)
[2020-01-21] MEDS ORDERED: MAGNESIUM HYDROXIDE SUSPENSION 30 ML UDCUP PO PRN (21:15)
[2020-01-21] MEDS ORDERED: DOCUSATE SODIUM 100 MG CAPSULE PO PRN (21:15)
[2020-01-21] MEDS ORDERED: OMEPRAZOLE 20 MG CAPSULE PO PRN (21:15)
[2020-01-21] MEDS ORDERED: PETROLATUM,WHITE 28 GM JELLY TP PRN (21:15)
[2020-01-21] MEDS ORDERED: ACETAMINOPHEN 325 MG TABLET PO PRN (21:15)
[2020-01-21 21:16] VITALS: BP 107/56
[2020-01-22 00:59] VITALS: BP 100/65
[2020-01-22 08:17] VITALS: BP 115/78
[2020-01-22] MEDS: FLUoxetine HCL 20 MG CAPSULE PO SCH (09:10)
[2020-01-22] MEDS: FENOFIBRATE 160 MG TABLET PO SCH (09:10)
[2020-01-22] MEDS: ATORVASTATIN CALCIUM 20 MG TABLET PO SCH (09:11)
[2020-01-22] MEDS: BENZTROPINE MESYLATE 1 MG TABLET PO SCH ×2 (09:11→16:52)
[2020-01-22] MEDS: FLUTICASONE/VILANTEROL 200-25 MCG/INH INHALER [14] IH SCH (09:11)
[2020-01-22] MEDS: VERAPAMIL HCL 80 MG TABLET PO SCH ×4 (09:11→20:31)
[2020-01-22] MEDS: RisperiDONE 3 MG TABLET PO SCH ×2 (09:11→16:52)
[2020-01-22 13:05] VITALS: BP 116/76
[2020-01-22 16:10] VITALS: BP 104/65
[2020-01-22] MEDS: IBUPROFEN 600 MG TABLET PO PRN (18:37)
[2020-01-22] MEDS: DIVALPROEX SODIUM 500 MG ER TABLET PO SCH (20:17)
[2020-01-22] MEDS: OLANZapine 10 MG TABLET PO SCH (20:17)
[2020-01-23 01:56] VITALS: BP 140/94
[2020-01-23 06:10] VITALS: BP 140/94
[2020-01-23 08:12] VITALS: BP 108/69
[2020-01-23] MEDS: FLUTICASONE/VILANTEROL 200-25 MCG/INH INHALER [14] IH SCH (09:00)
[2020-01-23] MEDS: BENZTROPINE MESYLATE 1 MG TABLET PO SCH ×2 (10:31→17:42)
[2020-01-23] MEDS: FLUoxetine HCL 20 MG CAPSULE PO SCH (10:31)
[2020-01-23] MEDS: ATORVASTATIN CALCIUM 20 MG TABLET PO SCH (10:31)
[2020-01-23] MEDS: RisperiDONE 3 MG TABLET PO SCH ×2 (10:31→17:42)
[2020-01-23] MEDS: FENOFIBRATE 160 MG TABLET PO SCH (10:31)
[2020-01-23] MEDS: VERAPAMIL HCL 80 MG TABLET PO SCH ×4 (10:32→21:26)
[2020-01-23 16:30] VITALS: BP 109/65
[2020-01-23] MEDS: IBUPROFEN 600 MG TABLET PO PRN (17:30)
[2020-01-23] MEDS: DIVALPROEX SODIUM 500 MG ER TABLET PO SCH (21:26)
[2020-01-23] MEDS: OLANZapine 10 MG TABLET PO SCH (21:26)
[2020-01-24 00:30] VITALS: BP 109/68
[2020-01-24 08:11] VITALS: BP 106/64
[2020-01-24] MEDS: RisperiDONE 3 MG TABLET PO SCH ×2 (09:55→17:25)
[2020-01-24] MEDS: FLUoxetine HCL 20 MG CAPSULE PO SCH (09:55)
[2020-01-24] MEDS: ATORVASTATIN CALCIUM 20 MG TABLET PO SCH (09:55)
[2020-01-24] MEDS: BENZTROPINE MESYLATE 1 MG TABLET PO SCH ×2 (09:55→17:25)
[2020-01-24] MEDS: VERAPAMIL HCL 80 MG TABLET PO SCH ×4 (09:56→21:00)
[2020-01-24] MEDS: FENOFIBRATE 160 MG TABLET PO SCH (09:56)
[2020-01-24] MEDS: FLUTICASONE/VILANTEROL 200-25 MCG/INH INHALER [14] IH SCH (09:57)
[2020-01-24 16:20] VITALS: BP 100/65
[2020-01-24] MEDS: OLANZapine 10 MG TABLET PO SCH (21:00)
[2020-01-24] MEDS: DIVALPROEX SODIUM 500 MG ER TABLET PO SCH (21:00)
[2020-01-25 00:52] VITALS: BP 120/79
[2020-01-25 08:34] VITALS: BP 102/60
[2020-01-25] MEDS: FLUoxetine HCL 20 MG CAPSULE PO SCH (08:41)
[2020-01-25] MEDS: BENZTROPINE MESYLATE 1 MG TABLET PO SCH ×2 (08:41→16:17)
[2020-01-25] MEDS: FENOFIBRATE 160 MG TABLET PO SCH (08:41)
[2020-01-25] MEDS: RisperiDONE 3 MG TABLET PO SCH ×2 (08:41→16:17)
[2020-01-25] MEDS: VERAPAMIL HCL 80 MG TABLET PO SCH ×4 (08:41→20:44)
[2020-01-25] MEDS: ATORVASTATIN CALCIUM 20 MG TABLET PO SCH (08:41)
[2020-01-25] MEDS: FLUTICASONE/VILANTEROL 200-25 MCG/INH INHALER [14] IH SCH (08:42)
[2020-01-25 12:35] VITALS: BP 100/62
[2020-01-25] MEDS: IBUPROFEN 600 MG TABLET PO PRN (13:53)
[2020-01-25 16:09] VITALS: BP 103/60
[2020-01-25] MEDS: DIVALPROEX SODIUM 500 MG ER TABLET PO SCH (20:28)
[2020-01-25] MEDS: OLANZapine 10 MG TABLET PO SCH (20:28)
[2020-01-25 20:40] VITALS: BP 102/62
[2020-01-26 01:09] VITALS: BP 110/68
[2020-01-26] MEDS ORDERED: MULTIVITAMINS WITH MINERALS, THERAPEUTIC TABLET PO SCH (09:00)
[2020-01-26 09:48] VITALS: BP 107/60
[2020-01-26] MEDS: FENOFIBRATE 160 MG TABLET PO SCH (09:55)
[2020-01-26] MEDS: BENZTROPINE MESYLATE 1 MG TABLET PO SCH ×2 (09:55→16:51)
[2020-01-26] MEDS: FLUoxetine HCL 20 MG CAPSULE PO SCH (09:55)
[2020-01-26] MEDS: ATORVASTATIN CALCIUM 20 MG TABLET PO SCH (09:55)
[2020-01-26] MEDS: RisperiDONE 3 MG TABLET PO SCH ×2 (09:55→16:51)
[2020-01-26] MEDS: VERAPAMIL HCL 80 MG TABLET PO SCH ×3 (09:55→16:51)
[2020-01-26] MEDS: FLUTICASONE/VILANTEROL 200-25 MCG/INH INHALER [14] IH SCH (09:56)
[2020-01-26] MEDS ORDERED: RISP3TAB44 PO (11:19)
[2020-01-26 13:05] VITALS: BP 110/60
[2020-01-26] MEDS: IBUPROFEN 600 MG TABLET PO PRN (14:51)
[2020-01-26 16:38] VITALS: BP 109/75
== END 2020-01-26 17:48 | disposition home or self-care (01) | DRG 750 ==
LOC: EMS 17:05 → B2S 17:29
PROVIDERS: ADMIT Psychiatry & Neurology Psychiatry; ATTEND Psychiatry & Neurology Psychiatry
DX: F20.0 Paranoid schizophrenia (principal); E78.5 Hyperlipidemia, unspecified; J44.9 Chronic obstructive pulmonary disease, unspecified; N40.0 Benign prostatic hyperplasia without lower urinary tract symptoms; R45.851 Suicidal ideations; F10.10 Alcohol abuse, uncomplicated; Z20.828 Contact with and (suspected) exposure to other viral communicable diseases; F41.9 Anxiety disorder, unspecified; F90.9 Attention-deficit hyperactivity disorder, unspecified type; Z87.891 Personal history of nicotine dependence; Z90.81 Acquired absence of spleen
CPT/HCPCS: 84439; 84443; 87426; G0480; J3535

== ENCOUNTER 2020-01-27 21:04 | Emergency (ER) | payer MEDICAID, OTHER ==
[~2020-01-27] VITALS: Ht 170.2 cm; Wt 95.5 kg
[~2020-01-27 21:04] MED LIST changes: -AUD NEB; -IPRNEB IH; +RISP3TAB44 PO
[2020-01-27 21:15] VITALS: BP 108/72
[2020-01-27 21:42] LABS: BASOPHILS % (AUTO) 2.1 % (0.0-2.0); EOSINOPHILS % (AUTO) 3.5 % (1.0-6.0); HEMOGLOBIN 11.9 g/dL (13.5-17.5); LYMPHOCYTES # (AUTO) 3.6 K/uL (1.0-4.8); LYMPHOCYTES % (AUTO) 35.1 % (22.0-44.0); MEAN CORPUSCULAR HEMOGLOBIN 31.4 pg (26.0-34.0); MEAN CORPUSCULAR HGB CONC 33.1 G/dL (31.0-37.0); MEAN CORPUSCULAR VOLUME 95 fL (80-100); MONOCYTES # (AUTO) 1.2 K/uL (0.1-1.0); MONOCYTES % (AUTO) 11.1 % (2.0-9.0); NEUTROPHILS % (AUTO) 48.2 % (40.0-70.0); PLATELET COUNT (AUTO) 398 K/uL (150-450); RED CELL DISTRIBUTION WIDTH 15.5 % (11.5-14.5)
[2020-01-27 21:55] LABS: ANION GAP 8 mmol/L (8-16); CALCIUM, TOTAL 9.2 mg/dL (8.8-10.5); CARBON DIOXIDE 27 mmol/L (22-29); CHLORIDE 105 mmol/L (98-107); CREATININE 0.81 mg/dL (0.60-1.30); GLOMERULAR FILTR. RATE CALC > 60 mL/min (>60); GLUCOSE,RANDOM 105 mg/dL (70-110); POTASSIUM 4.1 mmol/L (3.5-5.1); SODIUM SERUM 140 mmol/L (136-145); UREA NITROGEN, BLOOD 23 mg/dL (7-18)
[2020-01-27 22:01] LABS: ALANINE AMINOTRANSFERASE 20 U/L (12-78); ALBUMIN 3.2 g/dL (3.4-5.0); ALKALINE PHOSPHATASE 41 U/L (46-116); ASPARTATE AMINOTRANSFERASE 19 U/L (15-37); BILIRUBIN,TOTAL 0.3 mg/dL (0.1-1.0); LIPASE 108 U/L (73-393); TOTAL PROTEIN, SERUM 6.1 g/dL (6.4-8.2)
[2020-01-27] MEDS ORDERED: IOVERSOL 350 MG/ML 100 ML VIAL ONE (23:06)
[2020-01-27] MEDS ORDERED: SODIUM CHLORIDE 0.9% 100 ML ONE (23:06)
== END 2020-01-28 03:12 | disposition home or self-care (01) ==
LOC: EMS 21:04
DX: K59.00 Constipation, unspecified (principal)
CPT/HCPCS: 36415; 74022; 74177; 80053; 83605; 83690; 85025; 99285; J7050; Q9967

== ENCOUNTER 2020-01-28 19:00 | Emergency (ER) | payer OTHER ==
[~2020-01-28] VITALS: Ht 172.7 cm; Wt 98.0 kg
[2020-01-28] MEDS ORDERED: MAGNESIUM CITRATE 300 ML ORAL SOLUTION PO ONE (19:15)
[2020-01-28 20:08] VITALS: BP 118/71
== END 2020-01-28 20:47 | disposition home or self-care (01) ==
LOC: EMS 19:00
DX: K59.00 Constipation, unspecified (principal); J45.909 Unspecified asthma, uncomplicated; F31.9 Bipolar disorder, unspecified; F20.9 Schizophrenia, unspecified; F17.210 Nicotine dependence, cigarettes, uncomplicated; F14.90 Cocaine use, unspecified, uncomplicated; F19.90 Other psychoactive substance use, unspecified, uncomplicated; Z88.8 Allergy status to other drugs, medicaments and biological substances; Z91.013 Allergy to seafood

== ENCOUNTER 2020-02-04 21:36 | Emergency (ER) | payer OTHER ==
[2020-02-04 23:41] VITALS: BP 127/72
== END 2020-02-05 00:05 | disposition home or self-care (01) ==
LOC: EMS 21:37
DX: S46.092A Other injury of muscle(s) and tendon(s) of the rotator cuff of left shoulder, initial encounter (principal); F17.210 Nicotine dependence, cigarettes, uncomplicated; F15.90 Other stimulant use, unspecified, uncomplicated; F14.90 Cocaine use, unspecified, uncomplicated; X50.9XXA Other and unspecified overexertion or strenuous movements or postures, initial encounter; Y93.89 Activity, other specified; Y92.89 Other specified places as the place of occurrence of the external cause; Y99.8 Other external cause status

== ENCOUNTER 2020-08-12 08:35 | Inpatient (IN) | payer MEDICAID ==
[~2020-08-12] VITALS: Ht 170.2 cm; Wt 111.4 kg
[~2020-08-12 08:35] MED LIST changes: -VERA80 PO; +VERA80TA11 PO
[2020-08-12] MEDS ORDERED: LORazepam 2 MG TABLET PO PRN (09:30)
[2020-08-12] MEDS: QUEtiapine FUMARATE 100 MG TABLET PO PRN (14:41)
[2020-08-12 14:56] VITALS: BP 128/74
[2020-08-12 16:13] VITALS: BP 114/62
[2020-08-12] MEDS: VERAPAMIL HCL 80 MG TABLET PO SCH ×2 (17:00→21:00)
[2020-08-12] MEDS: BENZTROPINE MESYLATE 1 MG TABLET PO SCH (17:49)
[2020-08-12] MEDS: RisperiDONE 3 MG TABLET PO SCH (17:49)
[2020-08-12] MEDS: DIVALPROEX SODIUM 500 MG DR TABLET PO SCH (20:17)
[2020-08-12] MEDS: OLANZapine 10 MG TABLET PO SCH (20:17)
[2020-08-13 00:35] VITALS: BP 115/68
[2020-08-13] MEDS ORDERED: PNEUMOCOCCAL VACCINE POLYVALENT 0.5 ML VIAL [PPSV23] IM. ONE (04:45)
[2020-08-13] MEDS: QUEtiapine FUMARATE 100 MG TABLET PO PRN (04:57)
[2020-08-13 08:03] VITALS: BP 121/69
[2020-08-13] MEDS: FENOFIBRATE 160 MG TABLET PO SCH (08:03)
[2020-08-13] MEDS: VERAPAMIL HCL 80 MG TABLET PO SCH ×4 (08:03→20:24)
[2020-08-13] MEDS: FLUoxetine HCL 20 MG CAPSULE PO SCH (08:04)
[2020-08-13] MEDS: ATORVASTATIN CALCIUM 20 MG TABLET PO SCH (08:04)
[2020-08-13] MEDS: RisperiDONE 3 MG TABLET PO SCH ×2 (08:04→16:21)
[2020-08-13] MEDS: BENZTROPINE MESYLATE 1 MG TABLET PO SCH ×2 (08:04→16:21)
[2020-08-13 08:11] LABS: BASOPHILS % (AUTO) 0.8 % (0.0-2.0); EOSINOPHILS % (AUTO) 4.4 % (1.0-6.0); HEMATOCRIT 48.2 % (41-53); HEMOGLOBIN 15.7 g/dL (13.5-17.5); LYMPHOCYTES # (AUTO) 3.9 K/uL (1.0-4.8); LYMPHOCYTES % (AUTO) 32.2 % (22.0-44.0); MEAN CORPUSCULAR HEMOGLOBIN 28.8 pg (26.0-34.0); MEAN CORPUSCULAR HGB CONC 32.6 G/dL (31.0-37.0); MEAN CORPUSCULAR VOLUME 89 fL (80-100); MONOCYTES # (AUTO) 1.5 K/uL (0.1-1.0); MONOCYTES % (AUTO) 12.1 % (2.0-9.0); NEUTROPHILS # (AUTO) 6.1 K/uL (1.8-7.7); NEUTROPHILS % (AUTO) 50.5 % (40.0-70.0); PLATELET COUNT (AUTO) 386 K/uL (150-450); RED BLOOD CELL COUNT(AUTO) 5.44 MIL/uL (4.50-5.90); RED CELL DISTRIBUTION WIDTH 17.1 % (11.5-14.5)
[2020-08-13 08:25] LABS: HEMOGLOBIN A1C 6.2 % (3.8-5.6)
[2020-08-13 08:31] LABS: ALANINE AMINOTRANSFERASE 30 U/L (12-78); ALBUMIN 3.3 g/dL (3.4-5.0); ALKALINE PHOSPHATASE 60 U/L (46-116); ANION GAP 5 mmol/L (8-16); ASPARTATE AMINOTRANSFERASE 20 U/L (15-37); BILIRUBIN,TOTAL 0.2 mg/dL (0.1-1.0); CALCIUM, TOTAL 9.8 mg/dL (8.8-10.5); CARBON DIOXIDE 35 mmol/L (22-29); CHLORIDE 102 mmol/L (98-107); CHOL/HDL RATIO 10.6 (4.2-7.3); CHOLESTEROL 287 mg/dL (131-200); CREATININE 0.81 mg/dL (0.60-1.30); FREE T4 (FREE THYROXINE) 0.82 ng/dL (0.76-1.46); GLOMERULAR FILTR. RATE CALC > 60 mL/min (>60); GLUCOSE,RANDOM 96 mg/dL (70-110); HDL CHOLESTEROL 27 mg/dL (40-60); POTASSIUM 4.3 mmol/L (3.5-5.1); SODIUM SERUM 142 mmol/L (136-145); THYROID STIMULATING HORMONE 1.68 uIU/mL (0.36-3.74); TRIGLYCERIDES 525 mg/dL (15-150); UREA NITROGEN, BLOOD 21 mg/dL (7-18)
[2020-08-13] MEDS ORDERED: FLUTICASONE/VILANTEROL 100-25 MCG/INH INHALER [14] IH SCH (09:00)
[2020-08-13 16:12] VITALS: BP 119/77
[2020-08-13] MEDS ORDERED: ONDANSETRON HCL 4 MG TABLET PO PRN (20:15)
[2020-08-13] MEDS ORDERED: CloNIDine HCL 0.1 MG TABLET PO PRN (20:15)
[2020-08-13] MEDS ORDERED: NICOTINE 14 MG/24 HOUR PATCH TD PRN (20:15)
[2020-08-13] MEDS ORDERED: ACETAMINOPHEN 325 MG TABLET PO PRN (20:15)
[2020-08-13] MEDS ORDERED: ALBUTEROL SULFATE HFA 90 MCG/PUFF 8 GM INHALER IH PRN (20:15)
[2020-08-13] MEDS ORDERED: LOPERAMIDE HCL 2 MG CAPSULE PO PRN (20:15)
[2020-08-13] MEDS ORDERED: IBUPROFEN 400 MG TABLET PO PRN (20:15)
[2020-08-13] MEDS ORDERED: MAGNESIUM HYDROXIDE SUSPENSION 30 ML UDCUP PO PRN (20:15)
[2020-08-13] MEDS ORDERED: GuaiFENesin/D-METHORPHAN [SUGAR-FREE] 200-20MG/10 ML SYRUP UDCUP PO PRN (20:15)
[2020-08-13] MEDS ORDERED: DOCUSATE SODIUM 100 MG CAPSULE PO PRN (20:15)
[2020-08-13] MEDS ORDERED: MAG HYDROX/AL HYDROX/SIMETH ES 30 ML SUSPENSION UDCUP PO PRN (20:15)
[2020-08-13] MEDS ORDERED: PETROLATUM,WHITE 28 GM JELLY TP PRN (20:15)
[2020-08-13] MEDS: DIVALPROEX SODIUM 500 MG DR TABLET PO SCH (20:27)
[2020-08-13] MEDS: OLANZapine 10 MG TABLET PO SCH (20:27)
[2020-08-13] MEDS ORDERED: VERAPAMIL HCL 80 MG TABLET PO SCH (21:00)
[2020-08-13] MEDS: ZOLPIDEM TARTRATE 10 MG TABLET PO PRN (21:58)
[2020-08-14 00:40] VITALS: BP 130/79
[2020-08-14] MEDS ORDERED: ATORVASTATIN CALCIUM 20 MG TABLET PO SCH (09:00)
[2020-08-14] MEDS ORDERED: FENOFIBRATE 160 MG TABLET PO SCH (09:00)
[2020-08-14] MEDS: FLUTICASONE/VILANTEROL 200-25 MCG/INH INHALER [14] IH SCH (09:00)
[2020-08-14] MEDS: VERAPAMIL HCL 80 MG TABLET PO SCH ×4 (09:24→20:41)
[2020-08-14] MEDS: FLUoxetine HCL 20 MG CAPSULE PO SCH (09:24)
[2020-08-14] MEDS: ATORVASTATIN CALCIUM 20 MG TABLET PO SCH (09:24)
[2020-08-14] MEDS: RisperiDONE 3 MG TABLET PO SCH ×2 (09:24→16:21)
[2020-08-14] MEDS: FENOFIBRATE 160 MG TABLET PO SCH (09:24)
[2020-08-14] MEDS: BENZTROPINE MESYLATE 1 MG TABLET PO SCH ×2 (09:25→16:21)
[2020-08-14] MEDS: MULTIVITAMINS, THERAPEUTIC TABLET PO SCH (09:33)
[2020-08-14 10:12] VITALS: BP 134/68
[2020-08-14 16:22] VITALS: BP 116/65
[2020-08-14] MEDS ORDERED: TraMADol HCL 50 MG TABLET PO PRN (18:30)
[2020-08-14] MEDS: DIVALPROEX SODIUM 500 MG DR TABLET PO SCH (20:40)
[2020-08-14] MEDS: OLANZapine 10 MG TABLET PO SCH (20:41)
[2020-08-14] MEDS: ZOLPIDEM TARTRATE 10 MG TABLET PO PRN (22:07)
[2020-08-15] MEDS: QUEtiapine FUMARATE 100 MG TABLET PO PRN (01:00)
[2020-08-15 01:08] VITALS: BP 118/72
[2020-08-15 08:24] VITALS: BP 133/77
[2020-08-15] MEDS ORDERED: FLUO-191 PO (10:02)
[2020-08-15] MEDS ORDERED: RISP3TAB44 PO (10:02)
[2020-08-15] MEDS ORDERED: OLAN10TA20 PO (10:02)
[2020-08-15] MEDS ORDERED: BENZ1TAB10 PO (10:02)
[2020-08-15] MEDS ORDERED: DIVA-112 PO (10:02)
[2020-08-15] MEDS: FLUTICASONE/VILANTEROL 200-25 MCG/INH INHALER [14] IH SCH (10:06)
[2020-08-15] MEDS: RisperiDONE 3 MG TABLET PO SCH (10:06)
[2020-08-15] MEDS: VERAPAMIL HCL 80 MG TABLET PO SCH (10:06)
[2020-08-15] MEDS: FLUoxetine HCL 20 MG CAPSULE PO SCH (10:06)
[2020-08-15] MEDS: FENOFIBRATE 160 MG TABLET PO SCH (10:06)
[2020-08-15] MEDS: MULTIVITAMINS, THERAPEUTIC TABLET PO SCH (10:07)
[2020-08-15] MEDS: BENZTROPINE MESYLATE 1 MG TABLET PO SCH (10:07)
[2020-08-15] MEDS: ATORVASTATIN CALCIUM 20 MG TABLET PO SCH (10:07)
== END 2020-08-15 13:15 | disposition home or self-care (01) | DRG 750 ==
LOC: B2S 10:40
PROC: 3E0234Z Introduction of Serum, Toxoid and Vaccine into Muscle, Percutaneous Approach (ICD-10-PCS; principal; 2020-08-13)
DX: F25.1 Schizoaffective disorder, depressive type (principal); R45.851 Suicidal ideations; E66.9 Obesity, unspecified; E78.5 Hyperlipidemia, unspecified; I10 Essential (primary) hypertension; J44.9 Chronic obstructive pulmonary disease, unspecified; F41.9 Anxiety disorder, unspecified; Z79.899 Other long term (current) drug therapy; Z23 Encounter for immunization; Z88.8 Allergy status to other drugs, medicaments and biological substances; Z91.013 Allergy to seafood; Z68.38 Body mass index [BMI] 38.0-38.9, adult
CPT/HCPCS: 80053; 80061; 83036; 84436; 84439; 84443; 85025; 90732; A9575; G0480

== ENCOUNTER 2024-07-02 03:06 | Inpatient (IN) | payer MEDICAID, OTHER ==
[2024-07-02] VITALS (7 sets, daily range): BP systolic 113–120; BP diastolic 55–64; PULSE 70–88; RESP 19–26; TEMP 97.7–98.1; O2SAT 91–98
[~2024-07-02] VITALS: Ht 170.2 cm; Wt 118.6 kg
[~2024-07-02 03:06] MED LIST changes: +ATOR20TA PO; -ATOR20TA86 PO; +BENZ-247 PO; -BENZ1TAB10 PO; +DIVA-112 PO; -DIVA-80 PO; +FLUO-177 PO; -FLUO-191 PO; -MULT-1192 PO; +OLAN10 PO; -OLAN10TA3 PO
[2024-07-02 04:19] LABS: COVID AG,FIA SOURCE NASAL SWAB
[2024-07-02 04:37] LABS: SARS-COV2 (COVID) ANTIGEN,FIA Negative (Negative)
[2024-07-02 05:26] LABS: AMPHET/METH SCREEN,URINE NEGATIVE (NEGATIVE); BARBITURATE SCREEN, URINE NEGATIVE (NEGATIVE); BENZODIAZEPINES SCREEN,URINE NEGATIVE (NEGATIVE); CANNABINOID SCREEN,URINE NEGATIVE (NEGATIVE); COCAINE SCREEN,URINE NEGATIVE (NEGATIVE); METHADONE SCREEN, URINE NEGATIVE (NEGATIVE); OPIATE SCREEN,URINE NEGATIVE (NEGATIVE); PHENCYCLIDINE SCREEN,URINE NEGATIVE (NEGATIVE)
[2024-07-02 05:33] LABS: ALCOHOL, URINE DRUG SCREEN NEGATIVE (NEGATIVE)
[2024-07-02] MEDS ORDERED: MAGNESIUM HYDROXIDE SUSPENSION 30 ML UDCUP PO PRN (05:45)
[2024-07-02 05:49] LABS: APPEARANCE,URINE CLEAR (CLEAR); BILIRUBIN,URINE NEGATIVE (NEGATIVE); COLOR,URINE LIGHT YELLOW (YELLOW); GLUCOSE, URINE (UA) NEGATIVE (NEGATIVE); KETONES,URINE NEGATIVE (NEGATIVE); LEUKOCYTE ESTERASE ,URINE NEGATIVE (NEGATIVE); NITRATE,URINE NEGATIVE (NEGATIVE); OCCULT BLOOD,URINE NEGATIVE (NEGATIVE); PROTEIN,URINE NEGATIVE (NEGATIVE); SPECIFIC GRAVITIY, URINE 1.009 (1.003-1.030); UROBILINOGEN,URINE <=1.0 mg/dL (<=1.0)
[2024-07-02] MEDS: FAMOTIDINE 20 MG TABLET PO SCH (08:38)
[2024-07-02 13:19] LABS: BASOPHILS % (AUTO) 1.6 % (0.0-2.0); EOSINOPHILS % (AUTO) 4.3 % (1.0-6.0); HEMATOCRIT 41.9 % (41-53); HEMOGLOBIN 13.4 g/dL (13.5-17.5); LYMPHOCYTES % (AUTO) 25.5 % (22.0-44.0); MEAN CORPUSCULAR HGB CONC 32.1 G/dL (31.0-37.0); MEAN CORPUSCULAR VOLUME 87 fL (80-100); MONOCYTES # (AUTO) 1.7 K/uL (0.1-1.0); MONOCYTES % (AUTO) 14.7 % (2.0-9.0); NEUTROPHILS # (AUTO) 6.3 K/uL (1.8-7.7); NEUTROPHILS % (AUTO) 53.9 % (40.0-70.0); PLATELET COUNT (AUTO) 326 K/uL (150-450); RED CELL DISTRIBUTION WIDTH 17.1 % (11.5-14.5); WHITE BLOOD COUNT (AUTO) 11.8 K/uL (4.5-11.0)
[2024-07-02 13:30] LABS: ANION GAP 4 mmol/L (8-16); CARBON DIOXIDE 36 mmol/L (22-29); CHLORIDE 103 mmol/L (98-107); CREATININE 0.59 mg/dL (0.60-1.30); GLOMERULAR FILTR. RATE CALC > 60 mL/min (>60); GLUCOSE,RANDOM 124 mg/dL (70-110); POTASSIUM 4.1 mmol/L (3.5-5.1); SODIUM SERUM 142 mmol/L (136-145); UREA NITROGEN, BLOOD 7 mg/dL (7-18)
[2024-07-02 13:35] LABS: ALCOHOL, BLOOD (SERUM) < 3 mg/dL (0-10)
[2024-07-02] MEDS: ALBUTEROL SULFATE 2.5 MG/0.5 ML NEB SOLUTION NEB PRN (17:56)
[2024-07-03] VITALS (10 sets, daily range): BP systolic 100–118; BP diastolic 18–59; PULSE 70–76; RESP 15–22; TEMP 97.8–98.1; O2SAT 87–96
[2024-07-03] MEDS: HEPARIN SODIUM,PORCINE 5,000 UNITS/ML VIAL SQ SCH (17:38)
[2024-07-03] MEDS: ACETAMINOPHEN 325 MG TABLET PO PRN (20:38)
[2024-07-03] MEDS: ZOLPIDEM TARTRATE 5 MG TABLET PO PRN (20:44)
[2024-07-04] VITALS (9 sets, daily range): BP systolic 108–122; BP diastolic 64–78; PULSE 68–82; RESP 18–20; TEMP 97.4–98.2; O2SAT 72–98
[2024-07-04] MEDS ORDERED: CHOL200013 PO (17:01)
[2024-07-04] MEDS ORDERED: SITA100 PO (17:01)
[2024-07-04] MEDS ORDERED: BUME1TAB50 PO (17:01)
[2024-07-04] MEDS: HYDROCODONE/ACETAMINOPHEN 5-325 MG TABLET PO PRN (17:40)
[2024-07-04] MEDS: RisperiDONE 3 MG TABLET PO ONE (23:05)
[2024-07-04] MEDS: DIVALPROEX SODIUM 500 MG DR TABLET PO ONE (23:05)
[2024-07-04] MEDS: OLANZapine 10 MG TABLET PO ONE (23:05)
[2024-07-04] MEDS: FLUoxetine HCL 20 MG CAPSULE PO ONE (23:05)
[2024-07-05 03:55] VITALS: BP 139/102; PULSE 80; RESP 18; TEMP 97.9; O2SAT 90
[2024-07-05 07:18] VITALS: BP 134/92; PULSE 84; RESP 18; TEMP 98.1; O2SAT 94
== END 2024-07-05 15:20 | disposition home or self-care (01) | DRG 133 ==
LOC: EMS 03:06 → EDH 05:38 → UNDOADMIN 09:19 → 5N 18:00 → 4E 07-04 21:42
PROVIDERS: ADMIT Internal Medicine; ATTEND Internal Medicine
PROC: 5A09357 Assistance with Respiratory Ventilation, Less than 24 Consecutive Hours, Continuous Positive Airway Pressure (ICD-10-PCS; principal; 2024-07-02)
PROC: 5A09357 Assistance with Respiratory Ventilation, Less than 24 Consecutive Hours, Continuous Positive Airway Pressure (ICD-10-PCS; 2024-07-03)
PROC: 5A09357 Assistance with Respiratory Ventilation, Less than 24 Consecutive Hours, Continuous Positive Airway Pressure (ICD-10-PCS; 2024-07-04)
DX: J96.21 Acute and chronic respiratory failure with hypoxia (principal); R45.851 Suicidal ideations; F25.0 Schizoaffective disorder, bipolar type; Z99.81 Dependence on supplemental oxygen; J44.89 Other specified chronic obstructive pulmonary disease; E66.9 Obesity, unspecified; G47.33 Obstructive sleep apnea (adult) (pediatric); F19.10 Other psychoactive substance abuse, uncomplicated; Z20.822 Contact with and (suspected) exposure to COVID-19; F17.210 Nicotine dependence, cigarettes, uncomplicated; F15.90 Other stimulant use, unspecified, uncomplicated; F90.9 Attention-deficit hyperactivity disorder, unspecified type; Z90.81 Acquired absence of spleen; Z68.41 Body mass index [BMI] 40.0-44.9, adult
CPT/HCPCS: 71045; 80048; 80307; 81003; 85025; 94640; 94660; 99285; G0378; G0480; J1644; 36415-L1; 36415-TC; J7613